=== PATIENT | female | born 1975 | race Caucasian/White ===

== ENCOUNTER 2016-10-11 00:19 | Emergency (ER) | payer SELFPAY ==
[~2016-10-11] VITALS: Ht 152.4 cm; Wt 80.0 kg
[2016-10-11] MEDS ORDERED: ACETAMINOPHEN 325MG TABLET PO ONE (03:30)
[2016-10-11 05:00] VITALS: BP 121/63
== END 2016-10-11 05:30 | disposition home or self-care (01) ==
LOC: ER 00:19
DX: S83.92XA Sprain of unspecified site of left knee, initial encounter (principal); Z88.0 Allergy status to penicillin; W19.XXXA Unspecified fall, initial encounter; Y93.89 Activity, other specified; Y92.89 Other specified places as the place of occurrence of the external cause; Y99.8 Other external cause status
CPT/HCPCS: 73562; 81025; 99284; L1830